=== PATIENT | female | born 1950 | race Caucasian/White ===

== ENCOUNTER → 2018-04-04 | Outpatient (CLI) | payer MEDICARE ==
[2018-04-04] MEDS: IOHEXOL 300 MG/ML 100ML VIAL. IV (15:39)
== END | disposition home or self-care (01) ==
LOC: CT 14:55
DX: K44.9 Diaphragmatic hernia without obstruction or gangrene (principal)
CPT/HCPCS: 71275; Q9967

== ENCOUNTER → 2018-04-24 | Outpatient (CLI) | payer MEDICARE | END | disposition home or self-care (01) | LOC: KCIC MAMMO 07:54 | DX: N63.11 Unspecified lump in the right breast, upper outer quadrant (principal) | CPT/HCPCS: 76641; 77066; G0279 ==

== ENCOUNTER → 2021-03-17 | Outpatient (CLI) | payer MEDICARE ==
[2018-06-18 11:00] VITALS: BP 111/43
[~2021-03-17] MED LIST: AMIT25TA PO; AMOX250C PO; ASPI325T11 PO; CLON2TAB9 PO; CLOP75TA PO; FERR325T72 PO; FURO20TA3 PO; GUAI5SYR PO; HYDR-2769 PO; IMMU10VI8 IJ; LEVO500T59 PO; LISI20TA18 PO; OMEP40CA45 PO; PARO40TA3 PO; SIMV20TA18 PO
--- NOTE | 2021-03-17 14:24 | RAD ---
PET/CT imaging from the skull through both legs History: Multiple myeloma. Comparison: None. Technique: PET examination was performed from the skull base to the proximal thighs after intravenous administration of 14.39 mCi Fluorine [address] scan was performed for the purposes of localization and attenuation, not for primary diagnosis. Blood glucose level at time of injection was 102 mg/dl. PQRS Compliance Statement: One or more of the following individualized dose reduction techniques were utilized for this examination: 1. Automated exposure control 2. Adjustment of the mA and/or kV according to patient size 3. Use of iterative reconstruction technique Findings: HEAD AND NECK: Physiologic activity is seen within both sides neck including the submandibular glands and parapharyngeal area. No soft tissue mass or enlarged cervical lymphadenopathy is evident. There is a hypermetabolic focus within the right lobe of the thyroid gland with a max SUV of 3.0 CHEST: Calcified mediastinal and right hilar lymph nodes are seen due to old granulomatous disease. No enlarged thoracic lymphadenopathy is seen. No lung mass or lung nodule is seen. Cardiomegaly is seen. There is moderate size hiatal hernia. ABDOMEN AND PELVIS: No hepatic metastasis is seen. The spleen is not enlarged. No enlarged or hypermetabolic abdominal/pelvic lymphadenopathy is evident. There is physiologic activity within the GI and tract including the stomach and hiatal hernia. MUSCULOSKELETAL: No lytic process or hypermetabolic activity is seen. Benign nonhypermetabolic bone island of the medial posterior right iliac bone is seen adjacent to the SI joint. IMPRESSION: No lytic process or hypermetabolic lesion of the bones is seen. Hypermetabolic focus within the right lobe of the thyroid gland. Recommend thyroid sonography. Cardiomegaly.
== END ==
LOC: PETSC 09:49
PROVIDERS: ATTEND Internal Medicine Hematology & Oncology
DX: C90.00 Multiple myeloma not having achieved remission (principal); I51.7 Cardiomegaly; K44.9 Diaphragmatic hernia without obstruction or gangrene
CPT/HCPCS: 78815; A9552

== ENCOUNTER → 2021-03-29 | Outpatient (CLI) | payer MEDICARE ==
[2018-06-18 11:00] VITALS: BP 111/43
--- NOTE | 2021-03-29 16:03 | RAD ---
EXAM: Thyroid sonogram. HISTORY: Thyroid nodule on PET/CT. TECHNIQUE: Sonographic imaging of the thyroid was performed. COMPARISON: PET/CT dated 03/17/2021. FINDINGS: The right thyroid lobe measures 4.4 x 1.9 x 1.5 cm. The left thyroid lobe measures 4.3 x 1. 4 x 1.5 cm. The thyroid isthmus measures 4.7 mm. No thyroid nodule or cyst is seen. The thyroid paren chyma is slightly heterogeneous. IMPRESSION: Slightly heterogeneous thyroid parenchyma. No suspicious nodule is seen. Electronically signed by: Ameena Jason MD (03/29/2021 4:01 PM) [id number]
== END ==
LOC: US 15:09
PROVIDERS: ATTEND Internal Medicine Hematology & Oncology
DX: C90.00 Multiple myeloma not having achieved remission (principal); E04.1 Nontoxic single thyroid nodule
CPT/HCPCS: 76536

== ENCOUNTER → 2021-07-20 | Outpatient (CLI) | payer MEDICARE ==
[2018-06-18 11:00] VITALS: BP 111/43
[~2021-07-20] MED LIST changes: -OMEP40CA45 PO; +OMEP40CA7 PO
[2021-07-20 13:40] LABS: BASO # 0.1 x10^3/uL (0.0-0.2); BASO % 1 % (0-3); EOS # 0.2 x10^3/uL (0.0-0.7); EOS % 3 % (0-3); HEMOGLOBIN 11.9 g/dL (12.0-15.5); LYMPH % 46 % (24-48); MEAN CORPUSCULAR HEMOGLOBIN 31 pg (25-35); MEAN CORPUSCULAR HGB CONC 34 g/dL (31-37); MEAN CORPUSCULAR VOLUME 92 fL (79-100); MONO # 0.5 x10^3/uL (0.0-1.1); MONO % 5 % (0-9); NEUT # 3.9 x10^3/uL (1.8-7.7); NEUT % 45 % (31-73); PLATELET COUNT 405 x10^3/uL (140-400); RED CELL DISTRIBUTION WIDTH 13.8 % (11.5-14.5); WHITE BLOOD COUNT 8.7 x10^3/uL (4.0-11.0)
[2021-07-20 14:13] LABS: CALCIUM 9.2 mg/dL (8.5-10.1); CREATININE 1.3 mg/dL (0.6-1.0); GFR 40.6; POTASSIUM 3.7 mmol/L (3.5-5.1)
[2021-07-20 14:28] LABS: ALBUMIN 3.9 g/dL (3.4-5.0); ALBUMIN/GLOBULIN RATIO 0.8 (1.0-1.7); TOTAL BILIRUBIN 0.2 mg/dL (0.2-1.0); TOTAL PROTEIN 8.6 g/dL (6.4-8.2)
[2021-07-20 14:50] LABS: FREE T4 1.08 ng/dL (0.76-1.46); THYROID STIM HORMONE (TSH) 4.738 uIU/mL (0.358-3.74)
[2021-07-21 23:08] LABS: ALBUM 3.7 g/dL (2.9-4.4); ALPHA 1 0.2 g/dL (0.0-0.4); BETA 1.3 g/dL (0.7-1.3); GAMMA 1.6 g/dL (0.4-1.8); PROTEIN TOTAL 7.8 g/dL (6.0-8.5); SPEP AG RATIO 0.9 (0.7-1.7)
[2021-07-22 14:10] LABS: KAPPA FREE 41.6 mg/L (3.3-19.4); KAPPA LAMBDA RATIO 2.89 (0.26-1.65); LAMBDA FREE 14.4 mg/L (5.7-26.3)
== END ==
LOC: ONCLAB 13:24
PROVIDERS: ATTEND Physician Assistant
DX: C90.00 Multiple myeloma not having achieved remission (principal); D50.9 Iron deficiency anemia, unspecified; D64.9 Anemia, unspecified
CPT/HCPCS: 36415; 80053; 82728; 83520; 83540; 83550; 84165; 84439; 84443; 85025

== ENCOUNTER → 2021-07-20 | Outpatient (CLI) | payer MEDICARE ==
[2018-06-18 11:00] VITALS: BP 111/43
--- NOTE | 2021-07-20 15:44 | RAD ---
EXAM: Thoracic spine, 4 views. HISTORY: Pain. Fall. COMPARISON: None. FINDINGS: 4 views of the thoracic spine are obtained. There is mild S-shaped thoracic curvature. No a cute fracture seen. There is mild multilevel endplate remodeling. There is suspected bone demineraliz ation. IMPRESSION: 1. No acute osseous finding. 2. Mild multilevel degenerative change and suspected bone demineralization. Electronically signed by: Ameena Jason MD (07/20/2021 3:42 PM) [id number]
== END ==
LOC: RAD 14:42
PROVIDERS: ATTEND Physician Assistant
DX: C90.00 Multiple myeloma not having achieved remission (principal); M47.814 Spondylosis without myelopathy or radiculopathy, thoracic region
CPT/HCPCS: 72072

== ENCOUNTER → 2021-08-08 | Outpatient (CLI) | payer MEDICARE ==
[2018-06-18 11:00] VITALS: BP 111/43
--- NOTE | 2021-08-08 10:14 | KCIC ---
EXAM: DUAL ENERGY X-RAY ABSORPTIOMETRY (DEXA). HISTORY: Postmenopausal screening. Multiple myeloma. Loss of height. FINDINGS: The lowest measured T-score is -2.2 in the right hip, based on a bone mineral density of 0. 674 g/cm^2. Refer to the worksheets for full detail. No comparison examinations are available. IMPRESSION: 1. Low bone mass. Bone mineral density yields a T-score between -1.0 and -2.5. Fracture risk is incre ased. 2. FRAX report: Not calculated. METHODOLOGY: Dual energy x-ray absorptiometry was performed to measure bone mineral density. The foll owing analysis is based on the 2019 Official Positions of the International Society for Clinical Dens itometry: Measurements of the hips and the average of L1-L4 are preferred. When the spine and/or hip cannot be feasibly measured or interpreted, or in the setting of hyperparathyroidism, distal radial bone minera l density may be measured. The lumbar spine T-score is based on the average bone mineral density of L1-L4. In the setting of art ifact or anatomic abnormality, some lumbar levels may be excluded, and the remaining levels used for calculation. A single lumbar level is not used for diagnosis, and if only a single level is available for assessment, another anatomic site will be used to assign a diagnosis. The hip T-score is based on the bone mineral density measurement of the femoral neck or total proxima l femur of either side, whichever is lowest. Bilateral mean values are not used for diagnosis. The forearm T-score is derived from 33% of the distal radius of the nondominant forearm. Electronically signed by: Ameena Jason MD (08/08/2021 10:12 AM) [id number]
== END ==
LOC: KCIC DEXA 09:41
PROVIDERS: ATTEND Physician Assistant
DX: C90.00 Multiple myeloma not having achieved remission (principal); M85.88 Other specified disorders of bone density and structure, other site
CPT/HCPCS: 77080

== ENCOUNTER → 2021-08-16 | Outpatient (CLI) | payer MEDICARE ==
[2018-06-18 11:00] VITALS: BP 111/43
[2021-08-16 12:43] LABS: BASO # 0.1 x10^3/uL (0.0-0.2); BASO % 2 % (0-3); EOS # 0.2 x10^3/uL (0.0-0.7); EOS % 3 % (0-3); HEMATOCRIT 33.1 % (36.0-47.0); HEMOGLOBIN 10.9 g/dL (12.0-15.5); LYMPH # 2.2 x10^3/uL (1.0-4.8); LYMPH % 36 % (24-48); MEAN CORPUSCULAR HEMOGLOBIN 30 pg (25-35); MEAN CORPUSCULAR HGB CONC 33 g/dL (31-37); MEAN CORPUSCULAR VOLUME 92 fL (79-100); MONO # 0.4 x10^3/uL (0.0-1.1); MONO % 7 % (0-9); NEUT # 3.3 x10^3/uL (1.8-7.7); NEUT % 53 % (31-73); PLATELET COUNT 419 x10^3/uL (140-400); RED BLOOD COUNT 3.58 x10^6/uL (3.50-5.40); RED CELL DISTRIBUTION WIDTH 13.7 % (11.5-14.5); WHITE BLOOD COUNT 6.2 x10^3/uL (4.0-11.0)
== END ==
LOC: ONCLAB 12:30
PROVIDERS: ATTEND Internal Medicine Hematology & Oncology
DX: D50.9 Iron deficiency anemia, unspecified (principal)
CPT/HCPCS: 36415; 82728; 83540; 83550; 85025

== ENCOUNTER → 2021-09-05 | Outpatient (CLI) | payer MEDICARE ==
[2018-06-18 11:00] VITALS: BP 111/43
[2021-09-05 11:26] LABS: BASO # 0.1 x10^3/uL (0.0-0.2); BASO % 1 % (0-3); EOS # 0.2 x10^3/uL (0.0-0.7); EOS % 3 % (0-3); HEMATOCRIT 32.1 % (36.0-47.0); HEMOGLOBIN 10.7 g/dL (12.0-15.5); LYMPH # 3.1 x10^3/uL (1.0-4.8); LYMPH % 51 % (24-48); MEAN CORPUSCULAR HEMOGLOBIN 31 pg (25-35); MEAN CORPUSCULAR HGB CONC 33 g/dL (31-37); MEAN CORPUSCULAR VOLUME 92 fL (79-100); MONO # 0.4 x10^3/uL (0.0-1.1); MONO % 7 % (0-9); NEUT # 2.3 x10^3/uL (1.8-7.7); NEUT % 38 % (31-73); PLATELET COUNT 325 x10^3/uL (140-400); RED BLOOD COUNT 3.48 x10^6/uL (3.50-5.40); RED CELL DISTRIBUTION WIDTH 13.9 % (11.5-14.5)
== END ==
LOC: ONCLAB 11:07
PROVIDERS: ATTEND Internal Medicine Hematology & Oncology
DX: D50.9 Iron deficiency anemia, unspecified (principal)
CPT/HCPCS: 36415; 82728; 83540; 83550; 85025

== ENCOUNTER → 2022-02-26 | Outpatient (CLI) | payer MEDICARE ==
[2018-06-18 11:00] VITALS: BP 111/43
[2022-02-26 13:58] LABS: BASO # 0.1 x10^3/uL (0.0-0.2); BASO % 1 % (0-3); EOS # 0.1 x10^3/uL (0.0-0.7); EOS % 2 % (0-3); HEMATOCRIT 35.5 % (36.0-47.0); HEMOGLOBIN 12.1 g/dL (12.0-15.5); LYMPH # 3.3 x10^3/uL (1.0-4.8); LYMPH % 43 % (24-48); MEAN CORPUSCULAR HEMOGLOBIN 33 pg (25-35); MEAN CORPUSCULAR HGB CONC 34 g/dL (31-37); MEAN CORPUSCULAR VOLUME 97 fL (79-100); MONO # 0.4 x10^3/uL (0.0-1.1); MONO % 6 % (0-9); NEUT # 3.8 x10^3/uL (1.8-7.7); NEUT % 49 % (31-73); PLATELET COUNT 316 x10^3/uL (140-400); RED BLOOD COUNT 3.66 x10^6/uL (3.50-5.40); RED CELL DISTRIBUTION WIDTH 12.8 % (11.5-14.5); WHITE BLOOD COUNT 7.7 x10^3/uL (4.0-11.0)
== END ==
LOC: ONCLAB 13:08
PROVIDERS: ATTEND Internal Medicine Hematology & Oncology
DX: D50.9 Iron deficiency anemia, unspecified (principal)
CPT/HCPCS: 36415; 82728; 83540; 83550; 85025

== ENCOUNTER → 2022-03-28 | Outpatient (CLI) | payer MEDICARE ==
[2018-06-18 11:00] VITALS: BP 111/43
[2022-03-28 14:00] LABS: BASO # 0.1 x10^3/uL (0.0-0.2); BASO % 1 % (0-3); EOS # 0.1 x10^3/uL (0.0-0.7); EOS % 2 % (0-3); HEMATOCRIT 36.3 % (36.0-47.0); HEMOGLOBIN 12.6 g/dL (12.0-15.5); LYMPH # 2.8 x10^3/uL (1.0-4.8); LYMPH % 44 % (24-48); MEAN CORPUSCULAR HEMOGLOBIN 33 pg (25-35); MEAN CORPUSCULAR HGB CONC 35 g/dL (31-37); MEAN CORPUSCULAR VOLUME 96 fL (79-100); MONO # 0.3 x10^3/uL (0.0-1.1); MONO % 5 % (0-9); NEUT % 47 % (31-73); PLATELET COUNT 354 x10^3/uL (140-400); RED BLOOD COUNT 3.79 x10^6/uL (3.50-5.40); RED CELL DISTRIBUTION WIDTH 12.7 % (11.5-14.5); WHITE BLOOD COUNT 6.4 x10^3/uL (4.0-11.0)
[2022-03-28 14:12] LABS: CALCIUM 8.9 mg/dL (8.5-10.1); CREATININE 0.9 mg/dL (0.6-1.0); GFR 61.9; POTASSIUM 4.5 mmol/L (3.5-5.1)
[2022-03-28 14:19] LABS: ALBUMIN 3.6 g/dL (3.4-5.0); ALBUMIN/GLOBULIN RATIO 0.8 (1.0-1.7); TOTAL BILIRUBIN 0.3 mg/dL (0.2-1.0); TOTAL PROTEIN 8.1 g/dL (6.4-8.2)
[2022-03-29 17:11] LABS: KAPPA FREE 29.5 mg/L (3.3-19.4); KAPPA LAMBDA RATIO 2.52 (0.26-1.65); LAMBDA FREE 11.7 mg/L (5.7-26.3)
[2022-03-30 15:15] LABS: ALBUM 3.9 g/dL (2.9-4.4); ALPHA 1 0.2 g/dL (0.0-0.4); BETA 1.2 g/dL (0.7-1.3); GAMMA 1.3 g/dL (0.4-1.8); PROTEIN TOTAL 7.5 g/dL (6.0-8.5); SPEP AG RATIO 1.1 (0.7-1.7)
== END ==
LOC: ONCLAB 13:43
PROVIDERS: ATTEND Internal Medicine Hematology & Oncology
DX: D50.9 Iron deficiency anemia, unspecified (principal)
CPT/HCPCS: 36415; 80053; 83520; 84165; 85025